=== PATIENT | female | born 1960 | race Caucasian/White ===

== ENCOUNTER → 2017-03-15 | Outpatient (CLI) | payer OTHER ==
[~2017-03-15] MED LIST: ASPI-496 PO; HYDR-3138 PO; PANT20TA2 PO
== END | disposition home or self-care (01) ==
LOC: CFH 13:54
PROVIDERS: ATTEND Family Medicine
DX: M50.322 Other cervical disc degeneration at C5-C6 level (principal); M48.02 Spinal stenosis, cervical region; M25.78 Osteophyte, vertebrae
CPT/HCPCS: 72050

== ENCOUNTER → 2017-03-22 | Outpatient (CLI) | payer OTHER | END | disposition home or self-care (01) | LOC: CFH 12:55 | PROVIDERS: ATTEND Family Medicine | DX: R91.1 Solitary pulmonary nodule (principal); C34.92 Malignant neoplasm of unspecified part of left bronchus or lung; M54.2 Cervicalgia | CPT/HCPCS: 71020 ==

== ENCOUNTER → 2017-04-02 | Outpatient (CLI) | payer OTHER ==
[~2017-04-02] MED LIST changes: +OMNIPAQUE 350 MG/ML, 75ML BOTTLE ONE
== END | disposition home or self-care (01) ==
LOC: CFH 15:08
PROVIDERS: ATTEND Family Medicine
DX: C34.82 Malignant neoplasm of overlapping sites of left bronchus and lung (principal); R91.8 Other nonspecific abnormal finding of lung field; C50.919 Malignant neoplasm of unspecified site of unspecified female breast; M54.2 Cervicalgia
CPT/HCPCS: 71260; Q9967

== ENCOUNTER → 2017-04-04 | Outpatient (CLI) | payer OTHER ==
[~2017-04-04] MED LIST changes: +CYCL5TAB PO; -OMNIPAQUE 350 MG/ML, 75ML BOTTLE ONE
== END | disposition home or self-care (01) ==
LOC: PETCFH 09:14 → MERGE 09:45
PROVIDERS: ATTEND Family Medicine
DX: C34.82 Malignant neoplasm of overlapping sites of left bronchus and lung (principal); M54.2 Cervicalgia; R93.8 Abnormal findings on diagnostic imaging of other specified body structures
CPT/HCPCS: 78306; A9537

== ENCOUNTER 2017-04-08 10:05 | Day surgery (SDC) | payer OTHER ==
[~2017-04-08] VITALS: Ht 154.9 cm; Wt 87.7 kg
[~2017-04-08 10:05] MED LIST changes: -CYCL5TAB PO
[2017-04-08 10:46] VITALS: BP 153/86
[2017-04-08] MEDS ORDERED: SODIUM CHLORIDE 0.9% 1,000 ML IV SCH (10:48)
[2017-04-08] MEDS ORDERED: CYCL5TAB PO (10:50)
[2017-04-08] MEDS ORDERED: FENTANYL PF 100 MCG/2ML ONE (11:23)
[2017-04-08] MEDS ORDERED: MIDAZOLAM 1 MG/ML, 5ML ONE (11:23)
[2017-04-08] MEDS ORDERED: NALOXONE 1 MG/ML, 2ML ONE (11:23)
[2017-04-08] MEDS ORDERED: FLUMAZENIL 0.1 MG/1 ML, 5ML ONE (11:23)
[2017-04-08] MEDS ORDERED: HYDROcodone/APAP 5/325 TABLET ONE (12:47)
== END 2017-04-08 15:35 | disposition home or self-care (01) ==
LOC: OUT 10:05 → MERGE 11:00 → OUT 15:35
PROVIDERS: ATTEND Family Medicine
DX: R91.8 Other nonspecific abnormal finding of lung field (principal); E66.9 Obesity, unspecified; Z85.42 Personal history of malignant neoplasm of other parts of uterus
CPT/HCPCS: 32405; 71010; 77012; 88305; 99156; 99157; J2250; J3010; J7030; J2310

== ENCOUNTER 2017-04-24 09:16 | Day surgery (SDC) | payer OTHER ==
[~2017-04-24] VITALS: Ht 154.9 cm; Wt 86.1 kg
[~2017-04-24 09:16] MED LIST changes: +CYCL5TAB PO; -HYDR-3138 PO; +HYDR-3237 PO
[2017-04-24 09:51] VITALS: BP 139/97
[2017-04-24] MEDS ORDERED: OXYC1TAB7 PO (09:51)
[2017-04-24] MEDS ORDERED: SODIUM CHLORIDE 0.9% 1,000 ML IV SCH (09:54)
[2017-04-24] MEDS ORDERED: MIDAZOLAM 1 MG/ML, 5ML ONE (12:18)
[2017-04-24] MEDS ORDERED: FENTANYL PF 100 MCG/2ML ONE (12:18)
== END 2017-04-24 15:25 | disposition home or self-care (01) ==
LOC: RAD 09:16
PROVIDERS: ATTEND Internal Medicine Hematology & Oncology
DX: C55 Malignant neoplasm of uterus, part unspecified (principal); R91.1 Solitary pulmonary nodule; E66.9 Obesity, unspecified; Z79.82 Long term (current) use of aspirin
CPT/HCPCS: 32405; 71010; 77012; 88305; 99156; J2250; J3010; J7030; 99157

== ENCOUNTER 2017-04-30 18:32 | Inpatient (IN) | payer OTHER ==
[~2017-04-30] VITALS: Ht 154.9 cm; Wt 87.5 kg
[~2017-04-30 18:32] MED LIST changes: +OXYC1TAB7 PO
[2017-04-30] MEDS ORDERED: SODIUM CHLORIDE FLUSH 10ML SYR IVF ONE (19:00)
[2017-04-30] MEDS ORDERED: FENTANYL PF 100 MCG/2ML ONE ×2 (19:22→20:13)
[2017-04-30] MEDS ORDERED: LIDOCAINE 1%, 20ML ONE (19:22)
[2017-04-30] MEDS ORDERED: MIDAZOLAM 1 MG/ML, 5ML ONE (19:22)
[2017-04-30 19:28] LABS: HEMATOCRIT 44.5 % (34.6-47.8); HEMOGLOBIN 14.9 g/dL (11.7-16.4); WHITE BLOOD COUNT 9.8 x10^3/uL (3.4-10)
[2017-04-30] MEDS ORDERED: LIDOCAINE 1%, 20ML INFIL ONE (19:30)
[2017-04-30 19:35] LABS: ASPARTATE AMINO TRANSFERASE 17 U/L (15-37); BLOOD UREA NITROGEN 27 mg/dL (7-18)
[2017-04-30] MEDS: FENTANYL PF 100 MCG/2ML IVPush PRN ×2 (20:15→21:32)
[2017-04-30] MEDS ORDERED: MIDAZOLAM 1 MG/ML, 2ML IVPush ONE (20:30)
[2017-04-30] MEDS ORDERED: FENTANYL PF 100 MCG/2ML IVPush ONE (20:30)
[2017-04-30] MEDS ORDERED: CYCL5TAB PO (20:40)
[2017-04-30] MEDS ORDERED: OXYcodone/APAP 5/325MG TABLET ONE (21:28)
[2017-04-30] MEDS ORDERED: OXYcodone/APAP 5/325MG TABLET PO ONE (21:30)
[2017-04-30] MEDS ORDERED: ONDANSETRON 2MG/ML, 2ML IVPush PRN (22:00)
[2017-04-30] MEDS ORDERED: DOCUSATE 100 MG CAPSULE PO PRN (22:00)
[2017-04-30] MEDS ORDERED: morphine SULFATE 10 MG/ML, 1ML IVPush PRN (22:00)
[2017-04-30] MEDS ORDERED: POLYETHYLENE GLYCOL 17 GM PACKET PO PRN (22:00)
[2017-04-30] MEDS ORDERED: ACETAMINOPHEN 325 MG TABLET PO PRN (22:00)
[2017-04-30] MEDS ORDERED: CYCLOBENZAPRINE 10 MG TABLET PO SCH (22:51)
[2017-05-01] MEDS: OXYcodone/APAP 5/325MG TABLET PO PRN ×2 (00:05→21:20)
[2017-05-01 02:33] VITALS: BP 125/84
[2017-05-01 04:43] LABS: HEMATOCRIT 39.4 % (34.6-47.8); HEMOGLOBIN 13.1 g/dL (11.7-16.4); WHITE BLOOD COUNT 11.4 x10^3/uL (3.4-10)
[2017-05-01 05:07] LABS: BLOOD UREA NITROGEN 27 mg/dL (7-18)
[2017-05-01] MEDS: OXYcodone IR 5MG TABLET PO PRN ×2 (05:43→09:18)
[2017-05-01 06:50] VITALS: BP 132/77
[2017-05-01] MEDS: ALBUTEROL SULFATE 2.5 MG/3 ML NPPB SCH ×4 (07:50→20:40)
[2017-05-01] MEDS: SODIUM CHLORIDE FLUSH 10ML SYR IVF SCH ×2 (09:18→20:35)
[2017-05-01] MEDS: SENNA/DOCUSATE TABLET PO SCH (09:19)
[2017-05-01] MEDS ORDERED: METHOCARBAMOL 500 MG TABLET PO PRN (12:30)
[2017-05-01 13:28] VITALS: BP 109/75
[2017-05-01 19:28] VITALS: BP 114/77
[2017-05-01] MEDS: CYCLOBENZAPRINE 10 MG TABLET PO SCH (20:35)
[2017-05-02 01:25] VITALS: BP 110/70
[2017-05-02] MEDS: OXYcodone IR 5MG TABLET PO PRN ×4 (02:25→22:17)
[2017-05-02 05:15] LABS: HEMATOCRIT 40.7 % (34.6-47.8); HEMOGLOBIN 13.4 g/dL (11.7-16.4); WHITE BLOOD COUNT 9.1 x10^3/uL (3.4-10)
[2017-05-02 05:20] LABS: BLOOD UREA NITROGEN 22 mg/dL (7-18)
[2017-05-02] MEDS: OXYcodone/APAP 5/325MG TABLET PO PRN (05:32)
[2017-05-02] MEDS: ALBUTEROL SULFATE 2.5 MG/3 ML NPPB SCH ×4 (07:04→19:36)
[2017-05-02] MEDS: SODIUM CHLORIDE FLUSH 10ML SYR IVF SCH ×2 (09:00→21:00)
[2017-05-02] MEDS: SENNA/DOCUSATE TABLET PO SCH (09:02)
[2017-05-02 14:20] VITALS: BP 124/84
[2017-05-02 18:46] VITALS: BP 134/84
[2017-05-02] MEDS: CYCLOBENZAPRINE 10 MG TABLET PO SCH (22:10)
[2017-05-03 01:04] VITALS: BP 111/74
[2017-05-03] MEDS: OXYcodone IR 5MG TABLET PO PRN ×4 (04:58→18:04)
[2017-05-03] MEDS: ALBUTEROL SULFATE 2.5 MG/3 ML NPPB SCH ×3 (06:33→15:00)
[2017-05-03 07:46] VITALS: BP 119/75
[2017-05-03] MEDS: SENNA/DOCUSATE TABLET PO SCH (09:00)
[2017-05-03] MEDS: SODIUM CHLORIDE FLUSH 10ML SYR IVF SCH (09:11)
[2017-05-03 13:35] VITALS: BP 121/80
[2017-05-03] MEDS ORDERED: DOCU-131 PO (16:05)
[2017-05-03] MEDS ORDERED: METH500T7 PO (16:05)
[2017-05-03 19:25] VITALS: BP 100/68
== END 2017-05-03 21:00 | disposition home or self-care (01) | DRG 199 ==
LOC: ED 19:43 → SUATTDRO 21:20 → EDIP 21:22 → 3NW 22:27
PROVIDERS: ADMIT Family Medicine; ATTEND Family Medicine
PROC: 0W9930Z Drainage of Right Pleural Cavity with Drainage Device, Percutaneous Approach (ICD-10-PCS; principal; 2017-04-30)
DX: J93.0 Spontaneous tension pneumothorax (principal); J96.01 Acute respiratory failure with hypoxia; C34.90 Malignant neoplasm of unspecified part of unspecified bronchus or lung; C78.01 Secondary malignant neoplasm of right lung; C78.02 Secondary malignant neoplasm of left lung; J98.11 Atelectasis; J95.811 Postprocedural pneumothorax; C53.9 Malignant neoplasm of cervix uteri, unspecified; E66.9 Obesity, unspecified; G89.29 Other chronic pain; M43.6 Torticollis; Z66 Do not resuscitate; Z85.41 Personal history of malignant neoplasm of cervix uteri
CPT/HCPCS: 36415; 71010; 71250; 80048; 80053; 85025; 93005; 94640; 96374; 99152; 99153; J2250; J3010; J3490; J7613; J2270

== ENCOUNTER → 2017-05-09 | Outpatient (CLI) | payer OTHER ==
[~2017-05-09] MED LIST changes: +DOCU-131 PO; +METH500T7 PO; +OMNIPAQUE 350 MG/ML, 100ML BOTTLE ONE
== END | disposition home or self-care (01) ==
LOC: RAD 16:18
PROVIDERS: ATTEND Internal Medicine
DX: R91.8 Other nonspecific abnormal finding of lung field (principal); K43.9 Ventral hernia without obstruction or gangrene
CPT/HCPCS: 71275; Q9967

== ENCOUNTER → 2017-05-14 | Outpatient (CLI) | payer OTHER ==
[~2017-05-14] MED LIST changes: +GADOBUTROL 7.5 MMOL/7.5 ML PFS ONE; -OMNIPAQUE 350 MG/ML, 100ML BOTTLE ONE
== END | disposition home or self-care (01) ==
LOC: CFH 08:52
PROVIDERS: ATTEND Internal Medicine Hematology & Oncology
DX: M48.02 Spinal stenosis, cervical region (principal); M89.8X8 Other specified disorders of bone, other site; M47.892 Other spondylosis, cervical region; M25.78 Osteophyte, vertebrae; C55 Malignant neoplasm of uterus, part unspecified
CPT/HCPCS: 72156; A9585

== ENCOUNTER → 2018-07-24 | Outpatient (CLI) | payer OTHER | END | disposition home or self-care (01) | LOC: RAD 14:32 | PROVIDERS: ATTEND Family Medicine | DX: D49.2 Neoplasm of unspecified behavior of bone, soft tissue, and skin (principal); C34.82 Malignant neoplasm of overlapping sites of left bronchus and lung | CPT/HCPCS: 70553; 72156; A9585 ==

== ENCOUNTER → 2018-07-29 | Outpatient (CLI) | payer OTHER ==
[~2018-07-29] MED LIST changes: -GADOBUTROL 7.5 MMOL/7.5 ML PFS ONE
[2018-07-29 13:11] LABS: C-REACTIVE PROTEIN, QUANT 0.06 mg/dL (0.02-0.49)
[2018-07-29 13:29] LABS: HCT (SEDRATE) 40.5 % (34.6-47.8)
== END | disposition home or self-care (01) ==
LOC: CFH 10:27
PROVIDERS: ATTEND Family Medicine
DX: M54.2 Cervicalgia (principal)
CPT/HCPCS: 36415; 82550; 82553; 85651; 86038; 86140; 86430

== ENCOUNTER → 2019-02-19 | Outpatient (CLI) | payer OTHER ==
[~2019-02-19] MED LIST changes: +GADOBUTROL 7.5 MMOL/7.5 ML PFS ONE; +OMNIPAQUE 350 MG/ML, 100ML BOTTLE ONE
== END | disposition home or self-care (01) ==
LOC: CFH 11:04
PROVIDERS: ATTEND Family Medicine
DX: C79.89 Secondary malignant neoplasm of other specified sites (principal); C34.92 Malignant neoplasm of unspecified part of left bronchus or lung; C55 Malignant neoplasm of uterus, part unspecified; M48.02 Spinal stenosis, cervical region; M47.816 Spondylosis without myelopathy or radiculopathy, lumbar region; K43.9 Ventral hernia without obstruction or gangrene; R91.8 Other nonspecific abnormal finding of lung field; R60.0 Localized edema; Z90.49 Acquired absence of other specified parts of digestive tract
CPT/HCPCS: 71260; 72156; 74177; A9585; Q9967